=== PATIENT | female | born 2000 | race Caucasian/White ===

== ENCOUNTER → 2021-04-24 | Outpatient (CLI) | payer OTHER ==
[~2021-04-24] VITALS: Ht 167.6 cm; Wt 61.4 kg
[~2021-04-24] MED LIST: CATHETER FLUSH 10 ML SYR IV PRN; GADOBUTROL 7.5 MMOL/7.5 ML (GADAVIST) VIAL IV ONE; IOHEXOL 300 MG/ML 50 ML (OMNIPAQUE 300) VIAL IV ONE
--- NOTE | 2021-04-24 14:32 | Diagnostic Imaging Report ---
INDICATION: Right shoulder pain. Patient brought to the procedure and placed on table in supine position. The left shoulder was prepped and draped in usual sterile fashion. A small amount 1% lidocaine was utilized for local anesthesia. 21-gauge needle was advanced into the left shoulder and placed with its tip at the rotator interval. A 15 mm solution of iodinated contrast, normal saline and gadolinium was injected under fluoroscopic observation. 13 seconds of fluoroscopic time was utilized. 2 images were obtained. The needle was withdrawn and hemostasis was obtained. The patient tolerated the procedure well and was sent to MRI in satisfactory condition. IMPRESSION: Successful left shoulder injection of gadolinium contrast solution, using fluoroscopy. Dictated by: Dictated on workstation # [id number]
--- NOTE | 2021-04-24 16:16 | Diagnostic Imaging Report ---
MRI LT UPPER EXT JOINT WITH TECHNIQUE: Multiplanar, multisequence MR imaging of the left shoulder was performed with intra-articular contrast. COMPARISON: None available. INDICATION: Left shoulder pain from weightlifting. FINDINGS: Rotator cuff: The supraspinatus, infraspinatus, teres minor, and subscapularis are all intact. No rotator cuff muscle atrophy or edema. Glenoid labrum: There is a normal-variant sublabral foramen in the anterosuperior aspect of the glenoid labrum. No labral tear is present. No paralabral cyst. The middle and inferior glenohumeral ligaments remain intact. Long head of biceps: Long head of biceps is normally positioned within the bicipital groove. The intracapsular segment is intact. Bones and cartilage: Humeral head is normal in morphology without fracture or focal osseous lesion. No glenohumeral chondromalacia. The AC joint alignment is normal and there are no features of distal clavicular osteolysis. Sclerotic focus within the glenoid is most compatible with a benign bone island. Soft tissues: No proliferative synovitis or loose bodies in the glenohumeral joint. No MRI findings to suggest adhesive capsulitis. No fluid or inflammatory like signal within the subacromial/subdeltoid space to indicate bursitis. IMPRESSION: 1. No labral tear. 2. Rotator cuff is intact. 3. Long head of biceps is normal. Dictated by: Dictated on workstation # [id number]
== END ==
LOC: RAD 13:30
PROVIDERS: ATTEND Orthopaedic Surgery
DX: S43.432A Superior glenoid labrum lesion of left shoulder, initial encounter (principal)
CPT/HCPCS: 23350; 73040; 73222